=== PATIENT | male | born 1965 | race Caucasian/White ===

== ENCOUNTER 2019-05-04 00:27 | Emergency (ER) | payer BC ==
[~2019-05-04] VITALS: Ht 160 cm; Wt 67.6 kg
[2019-05-04 04:42] VITALS: BP 115/79
== END 2019-05-04 04:42 | disposition home or self-care (01) ==
LOC: ED 00:27
DX: L03.116 Cellulitis of left lower limb (principal); S80.812D Abrasion, left lower leg, subsequent encounter; Z88.0 Allergy status to penicillin; X58.XXXD Exposure to other specified factors, subsequent encounter; E11.9 Type 2 diabetes mellitus without complications
CPT/HCPCS: J3490